=== PATIENT | female | born 1985 | race African-American/Black ===

== ENCOUNTER 2017-06-28 08:29 | Emergency (ER) | payer BC ==
[2017-06-28] MEDS ORDERED: Ketorolac Tromethamine 30 MG/ML VIAL ONE (08:49)
== END 2017-06-28 09:01 | disposition home or self-care (01) ==
LOC: SCSER 08:29
DX: M25.512 Pain in left shoulder (principal); Z87.891 Personal history of nicotine dependence
CPT/HCPCS: 96372; J1885